=== PATIENT | female | born 1975 | race Hispanic/Latino ===

== ENCOUNTER 2017-11-11 09:00 | Day surgery (SDC) | payer BC, OTHER ==
--- NOTE | 2017-11-08 09:03 | RAD REPORT ---
EXAM DESCRIPTION: RAD - Chest Pa And Lat (2 Views) - 11/08/2017 8:50 am CLINICAL HISTORY: Scoliosis, shortness of breath COMPARISON: None. FINDINGS: The lungs are clear. The heart is mildly enlarged in size. No displaced fractures. Moderat e scoliosis of the upper thoracic spine with concavity to the right. IMPRESSION: No acute intrathoracic process. Moderate scoliosis of the upper thoracic spine.
[2017-11-08 11:47] LABS: Absolute Lymphocytes (CBC) 2.4 K/uL (0.7-4.9); Absolute Monocytes 0.8 K/uL (0.1-1.3); Absolute Neutrophil 7.2 K/uL (1.8-8.0); Basophils % 0.7 % (0-1.3); Eosinophils % 3.2 % (0-4.4); Hematocrit 43.5 % (36.0-45.0); Lymphocytes % 22.3 % (15.3-44.8); MCH 28.3 pg (27.0-35.0); MCV 87.3 fL (80-100); MPV 8.9 fL (7.6-11.3); Monocytes % 7.7 % (3.3-12.3); RBC Red Blood Cell Count 4.99 M/uL (3.86-4.86)
[2017-11-08 11:57] LABS: BUN Blood Urea Nitrogen 13 mg/dL (6-20); Bicarbonate 29 mEq/L (21-31); Glucose Level 107 mg/dL (65-120); Potassium 4.4 mEq/L (3.6-5.0); Sodium Level 138 mEq/L (135-145)
--- NOTE | 2017-11-08 12:56 | EKG ---
Test Date: 2017-11-08 Test Time: 08:36:22 Set Up And Lay Out Inspector: JORDON MEASUREMENT RESULTS: Intervals: Rate: 67 AL: 162 QRSD: 74 QT: 412 QTc: 435 [place]: P: 70 AL: 162 QRS: 55 T: 65 INTERPRETIVE STATEMENTS: Normal sinus rhythm Normal ECG Compared to ECG 03/18/2011 18:24:19 No significant changes Electronically Signed On 11-08-17 12:55:26 CDT by Yury Donald
[2017-11-11] MEDS ORDERED: MIDAZOLAM HCL 2 MG/2 ML INJ ONE (09:24)
[2017-11-11] MEDS ORDERED: LIDOCAINE 2% MPF 5 ML VIAL ONE (09:24)
[2017-11-11] MEDS ORDERED: ONDANSETRON 4 MG/2 ML VIAL ONE ×2 (09:24→10:46)
[2017-11-11] MEDS ORDERED: PROPOFOL 200 MG/20 ML VIAL IV ONE (09:24)
[2017-11-11] MEDS ORDERED: ROCURONIUM 50 MG/5 ML VIAL IV ONE (09:25)
[2017-11-11] MEDS ORDERED: FENTANYL CITR 100 MCG/2 ML ONE (09:25)
[2017-11-11 09:30] LABS: Specific Gravity >= 1.030 (1.005-1.030)
[2017-11-11] MEDS ORDERED: CIPROFLOXACIN 400mg IV 400 MG/200 ML BAG IV ONE (09:30)
[2017-11-11] MEDS ORDERED: Ringers Lactate 1,000 ML IV ONE (09:30)
--- NOTE | 2017-11-11 10:30 | P.BOP ---
Preoperative diagnosis: tender incarcerated umbilical hernia Postoperative diagnosis: same Primary procedure: Open repair of tender incarcerated umbilical hernia Stablehand: Ingrid Monson) Estimated blood loss: <10cc Specimen: hernia sac and content Findings: incarcerated umbilical hernia Anesthesia: General Transferred to: Recovery Room Condition: Good
[2017-11-11] MEDS ORDERED: NEOSTIGMINE 1 MG/ML -5 ML SYRINGE ONE (10:33)
[2017-11-11] MEDS ORDERED: GLYCOPYRROLATE 0.2 MG/ML SYR ONE (10:33)
[2017-11-11] MEDS ORDERED: KETOROLAC 30 MG/ML INJ ONE (10:33)
[2017-11-11] MEDS: MEPERIDINE HCL 50 MG/ML AMP ONE ×4 (10:45→11:02)
[2017-11-11] MEDS: FENTANYL CITR 100 MCG/2 ML ONE ×2 (11:14→11:20)
[2017-11-11] MEDS ORDERED: DIPHENHYDRAMINE 50 MG/ML VIAL ONE (11:29)
[2017-11-11 11:33] VITALS: TEMP 97.8; O2SAT 96
[2017-11-11] MEDS ORDERED: CODEINE 30MG/APAP 300MG TAB ONE (11:58)
[2017-11-11 13:05] VITALS: BP 132/78
--- NOTE | 2017-11-12 02:01 | OP ---
Date of Procedure: 11/11/2017 Surgeon: Best Steinberg MD Instant Print Operator: MAHENDRA Barcenas. Postoperative Diagnoses: Tender incarcerated umbilical hernia, polycythemia vera. Postoperative Diagnoses: Tender incarcerated umbilical hernia, polycythemia vera. Procedures: Open repair of tender incarcerated umbilical hernia. Specimen: Hernia sac and content. Finding: Incarcerated umbilical hernia. Anesthesia: General plus local. Indications: This is the case of a 42-year-old patient, comes to us with incarcerated umbilical janae ia, tender, increasing in size and discomfort. The patient wanted that repair. The benefits, altern atives, and risks including but not limited to infection, bleeding, damage to adjacent structures, an esthesia complication, recurrence, [place], and even . She also understands this may not relieve the symptoms. She might need more than one surgical intervention. She understands the importance of lo sing weight and not doing heavy lifting. She signed a consent. The patient claimed that in the past she had polypropylene mesh and she believes she had a reaction to it, so she asked me not to use carl ypropylene for this surgery. She understands we might have some other alternative in the case it com es in the case of a porcine or even human cadaver mesh. She understood pros and cons of it. Description Of Procedure: The patient was brought to the operating room and placed in supine positio n. Anesthesia was done without complication. The abdominal area was prepped and draped in sterile f ashion. A time-out was called. A periumbilical incision was made with a sharp knife. Incision was carried down to fascia. We noticed the fascia edges present. We noticed incarcerated omentum that w as carefully released after opening the hernia sac. The hernia sac was removed. Omentum was suture ligated. The rest left back into the abdominal cavity after fully inspected and making sure there wa s no bleeding. Hernia sac was removed, fascial edges were cleaned, and then we proceeded to close th e fascial defect with a [id number] #1 Prolene interrupted multiple times. The patient tolerated the procedure well. The subcutaneous tissue was closed with 3-0 chromic and the skin in a subcuticu lar fashion with 3-0 chromic and Steri-Strips on top. Sponge count and instrument counts were correc t. The patient tolerated the procedure well. The patient was sent to Recovery in stable condition. /ANDRADE Voice ID: [id number] Report ID: [id number]
--- NOTE | 2017-11-12 02:07 | DS ---
Date of Discharge: 11/11/2017 Diagnosis: Incarcerated umbilical hernia, tender. Procedures: Open repair of a tender incarcerated umbilical hernia. Disposition: Home. Activity: As tolerated. No heavy lifting. Followup: Follow up in my office in 1 week. Call for appointment at [phone]. Keep the area dry fo r 48 hours, then may shower. Keep Steri-Strips intact. MASON/ANDRADE Voice ID: [id number] Report ID: [id number]
== END 2017-11-11 13:13 | disposition home or self-care (01) ==
LOC: OR 09:00
PROVIDERS: ATTEND Surgery
PROC: 0WQF0ZZ Repair Abdominal Wall, Open Approach (ICD-10-PCS; principal; 2017-11-11 11:30)
DX: K42.0 Umbilical hernia with obstruction, without gangrene (principal); D45 Polycythemia vera; Z79.82 Long term (current) use of aspirin; Z88.0 Allergy status to penicillin; Z88.2 Allergy status to sulfonamides; Z88.3 Allergy status to other anti-infective agents; Z82.49 Family history of ischemic heart disease and other diseases of the circulatory system; Z83.3 Family history of diabetes mellitus; Z80.49 Family history of malignant neoplasm of other genital organs
CPT/HCPCS: 36415; 71046; 80048; 81025; 85025; 88305; 93005; J0744; J2175; J2250; J2405; J2710; J3010